=== PATIENT | female | born 1955 | race Caucasian/White ===

== ENCOUNTER 2020-06-07 09:52 | Inpatient (IN) ==
[2020-06-07] MEDS ORDERED: Isovue-370 500 ML BOTTLE IVP ONE (10:12)
[2020-06-07] MEDS ORDERED: 0.9 % Sodium Chloride 1,000 ML IVC ONE (10:12)
[2020-06-07] MEDS ORDERED: *HR* FentaNYL (PF) 100 MCG/2 ML VIAL IVP ONE (10:12)
[2020-06-07] MEDS ORDERED: Pantoprazole 40 MG VIAL IVP ONE (10:19)
[2020-06-07 10:36] LABS: Bacteria,Urine Few per hpf (None-Few); Bilirubin,Urine Negative (Negative); Blood,Urine Negative (Negative); Clarity,Urine Turbid (Clear); Color,Urine Yellow (Yellow); Glucose,Urine (UA) Normal (Normal); Hyaline Casts,Urine Many per lpf (None Seen); Ketones,Urine Negative (Negative); Leukocyte Esterase,Urine Negative (Negative); Mucus,Urine Few per lpf (None-Few); Nitrite,Urine Negative (Negative); PH,Urine 6.5 pH Units (5.0-8.0); Protein,Urine 50 mg/dL (Neg-Trace); Specific Gravity,Urine 1.021 (1.010-1.025); Squamous Epithelial Cell,Urine Moderate per hpf (None-Few); Urobilinogen,Urine Normal (Normal)
[2020-06-07 10:45] LABS: Basophils % 0.2 %; Eosinophils # 0.3 K/mcL (0.0-0.6); Eosinophils % 1.1 %; Hematocrit 40.3 % (35.3-44.9); Hemoglobin 12.9 g/dL (11.5-15.4); Immature Granulocytes % 0.8 % (0-4); Lymphocytes % 4.3 %; Mean Corpuscular Hemoglobin 27.5 pg (28.0-33.3); Mean Corpuscular Volume 85.9 fL (83.0-100.0); Mean Platelet Volume 10.9 fL (9.4-12.4); Monocytes # 0.8 K/mcL (0.0-1.3); Monocytes % 3.5 %; Neutrophils # 20.5 K/mcL (1.6-8.9); Nucleated Red Blood Cells 0.3 /100 WBC (0); Platelet Count 332 K/mcL (140-400); Red Blood Count 4.69 M/mcL (3.82-4.97); Segmented Neutrophils % 90.1 %; White Blood Count 22.8 K/mcL (4.3-11.1)
[2020-06-07 10:52] LABS: INR 1.3; Prothrombin Time 14.2 Seconds (9.4-12.1)
[2020-06-07 10:55] LABS: Activated Partial Thrombo Time 29.3 Seconds (26.0-36.0)
[2020-06-07 11:06] LABS: Albumin 4.3 g/dL (3.5-5.7); Albumin/Globulin Ratio 1.3 (1.1-2.2); Bilirubin,Direct 0.3 mg/dL (0.0-0.2); Bilirubin,Indirect 0.9 mg/dL (0.0-1.0); Bilirubin,Total 1.2 mg/dL (0.3-1.0); Calcium 9.4 mg/dL (8.6-10.3); Globulin 3.2 g/dL (2.4-3.5); Potassium 3.2 mEq/L (3.5-5.1); Total Protein 7.5 g/dL (6.4-8.9); Troponin I 0.04 ng/mL (< 0.04)
[2020-06-07] MEDS ORDERED: Piperacillin/Tazobactam 3.375 GM in 0.9 % Sodium Chloride Mini Bag 100 ML IVPB ONE (11:07)
[2020-06-07] MEDS ORDERED: Piperacillin/Tazobactam 3.375 GM in Water for inj. (sterile) 20 ML IVP ONE (11:40)
[2020-06-07] MEDS: Ondansetron 4 MG/2 ML VIAL IVP ONE ×2 (11:41→22:08)
[2020-06-07] MEDS ORDERED: 0.9 % Sodium Chloride 1,000 ML IV ONE (12:07)
[2020-06-07] MEDS ORDERED: Ondansetron 4 MG/2 ML VIAL IVP PRN ×2 (12:12→22:16)
[2020-06-07] MEDS ORDERED: Naloxone 0.4 MG/ML INJ IVP PRN ×2 (12:12→22:16)
[2020-06-07] MEDS ORDERED: 0.9 % Sodium Chloride 1,000 ML IVC SCH ×2 (12:15→22:16)
[2020-06-07] MEDS ORDERED: Dextrose Gel 15 GM/37.5 ML TUBE PO PRN ×4 (12:45→22:16)
[2020-06-07] MEDS ORDERED: D5% in Water 1,000 ML IVC PRN ×2 (12:45→22:16)
[2020-06-07] MEDS ORDERED: *HR* Dextrose 50 % in Water (Vial) 50 ML VIAL IVP PRN ×2 (12:45→22:16)
[2020-06-07] MEDS ORDERED: Morphine Sulfate 2 MG/ML SYRINGE IVP PRN (13:53)
[2020-06-07] MEDS ORDERED: Piperacillin/Tazobactam 3.375 GM in 0.9 % Sodium Chloride Mini Bag 100 ML IVPB SCH (16:00)
[2020-06-07] MEDS: Insulin LISPRO 300 UNITS/3 ML VIAL SQ SCH ×2 (16:51→18:56)
[2020-06-07] MEDS ORDERED: *HR* FentaNYL (PF) 100 MCG/2 ML VIAL ONE (17:54)
[2020-06-07] MEDS ORDERED: *HR* Propofol 200 MG/20 ML VIAL IVP ONE (17:54)
[2020-06-07] MEDS ORDERED: *HR* Midazolam HCl 2 MG/2 ML VIAL ONE (17:54)
[2020-06-07] MEDS ORDERED: *HR* Promethazine 25 MG/ML VIAL IVP PRN (17:55)
[2020-06-07] MEDS ORDERED: *HR* HYDROmorphone PF 0.5 MG/0.5 ML SYRINGE IVP PRN (17:55)
[2020-06-07] MEDS ORDERED: Ondansetron 4 MG/2 ML VIAL IVP ONE (17:55)
[2020-06-07] MEDS ORDERED: *HR* Meperidine 25 MG/ML SYRINGE IVP PRN (17:55)
[2020-06-07] MEDS ORDERED: Dexamethasone 4 MG/ML VIAL ONE (17:57)
[2020-06-07] MEDS ORDERED: Lidocaine HCL 4 ML Topical Solution (Laryng-O-Jet Kit Sterile Pak) TP ONE (17:57)
[2020-06-07] MEDS ORDERED: Bupivacaine/EPI 1:200k 0.25%PF 30 ML VIAL ONE (18:10)
[2020-06-07] MEDS ORDERED: *HR* HYDROMORPHONE 2 MG/ML VIAL ONE (19:17)
[2020-06-07] MEDS ORDERED: Acetaminophen IV 1,000 MG/100 ML INFUS..BTL ONE (19:31)
[2020-06-07] MEDS ORDERED: Ringers Solution, Lactated 1,000 ML ONE (21:21)
[2020-06-07] MEDS ORDERED: *HR* Heparin 5,000 UNIT/ML VIAL SQ SCH (22:00)
[2020-06-07] MEDS: Piperacillin/Tazobactam 3.375 GM in 0.9 % Sodium Chloride Mini Bag 100 ML IVPB SCH (23:50)
[2020-06-08] MEDS: Insulin LISPRO 300 UNITS/3 ML VIAL SQ SCH ×5 (02:27→23:15)
[2020-06-08] MEDS: Chloraseptic Spray 177 ML BOTTLE MM PRN ×3 (02:35→21:18)
[2020-06-08] MEDS: Morphine Sulfate 2 MG/ML SYRINGE IVP PRN ×4 (03:43→21:19)
[2020-06-08] MEDS: Piperacillin/Tazobactam 3.375 GM in 0.9 % Sodium Chloride Mini Bag 100 ML IVPB SCH ×4 (05:30→23:36)
[2020-06-08] MEDS: *HR* Heparin 5,000 UNIT/ML VIAL SQ SCH ×2 (05:30→17:57)
[2020-06-08 06:05] LABS: Basophils % 0.1 %; Eosinophils % 0.1 %; Hematocrit 34.8 % (35.3-44.9); Immature Granulocytes % 0.8 % (0-4); Lymphocytes # 0.7 K/mcL (0.6-4.6); Lymphocytes % 3.7 %; Mean Corpuscular HGB Conc 30.7 g/dL (31.6-35.5); Mean Corpuscular Hemoglobin 27.9 pg (28.0-33.3); Mean Corpuscular Volume 90.9 fL (83.0-100.0); Mean Platelet Volume 10.7 fL (9.4-12.4); Monocytes # 0.7 K/mcL (0.0-1.3); Monocytes % 3.5 %; Neutrophils # 17.9 K/mcL (1.6-8.9); Platelet Count 276 K/mcL (140-400); Red Blood Count 3.83 M/mcL (3.82-4.97); Red Cell Distribution Width 14.3 % (11.5-14.5); Segmented Neutrophils % 91.8 %; White Blood Count 19.4 K/mcL (4.3-11.1)
[2020-06-08 06:08] LABS: Hemoglobin 10.7 g/dL (11.5-15.4)
[2020-06-08 06:23] LABS: Alanine Aminotransferase 11 Units/L (7-52); Albumin 3.3 g/dL (3.5-5.7); Albumin/Globulin Ratio 1.3 (1.1-2.2); Alkaline Phosphatase 60 Units/L (34-104); Aspartate Amino Transferase 9 Units/L (13-39); BUN/Creatinine Ratio 15 (6-26); Bilirubin,Total 0.8 mg/dL (0.3-1.0); Blood Urea Nitrogen 14 mg/dL (8-23); Calcium 8.1 mg/dL (8.6-10.3); Carbon Dioxide 19 mEq/L (23-29); Chloride 110 mEq/L (98-107); Globulin 2.6 g/dL (2.4-3.5); Glucose 173 mg/dL (70-105); Magnesium 1.6 mg/dL (1.6-2.6); Osmolality,Calculated 289 (280-300); Phosphorous 2.7 mg/dL (2.7-4.5); Potassium 4.2 mEq/L (3.5-5.1); Sodium 137 mEq/L (136-145); Total Protein 5.9 g/dL (6.4-8.9); eGFR For African Americans > 60 (> 60); eGFR For Non-African Americans 59 (> 60)
[2020-06-08 08:37] LABS: Estimated Average Glucose 140 mg/dl
[2020-06-08] MEDS ORDERED: Orphenadrine 60 MG/2 ML VIAL IVP PRN (08:42)
[2020-06-08] MEDS: Acetaminophen IV 1,000 MG/100 ML INFUS..BTL IVPB SCH ×3 (09:48→21:19)
[2020-06-09] MEDS: Acetaminophen IV 1,000 MG/100 ML INFUS..BTL IVPB SCH ×4 (02:55→23:01)
[2020-06-09] MEDS: Piperacillin/Tazobactam 3.375 GM in 0.9 % Sodium Chloride Mini Bag 100 ML IVPB SCH ×3 (05:55→23:01)
[2020-06-09] MEDS: Insulin LISPRO 300 UNITS/3 ML VIAL SQ SCH ×3 (05:56→17:52)
[2020-06-09] MEDS: *HR* Heparin 5,000 UNIT/ML VIAL SQ SCH ×2 (05:56→17:47)
[2020-06-09] MEDS: Morphine Sulfate 2 MG/ML SYRINGE IVP PRN ×2 (09:36→17:47)
[2020-06-09 10:06] LABS: Basophils % 0.2 %; Eosinophils # 0.2 K/mcL (0.0-0.6); Hematocrit 35.4 % (35.3-44.9); Immature Granulocytes % 0.9 % (0-4); Lymphocytes # 1.4 K/mcL (0.6-4.6); Lymphocytes % 7.8 %; Mean Corpuscular HGB Conc 31.1 g/dL (31.6-35.5); Mean Corpuscular Hemoglobin 28.3 pg (28.0-33.3); Mean Platelet Volume 10.6 fL (9.4-12.4); Monocytes # 0.4 K/mcL (0.0-1.3); Monocytes % 2.3 %; Neutrophils # 15.3 K/mcL (1.6-8.9); Platelet Count 289 K/mcL (140-400); Red Blood Count 3.89 M/mcL (3.82-4.97); Red Cell Distribution Width 14.4 % (11.5-14.5); Segmented Neutrophils % 87.8 %; White Blood Count 17.5 K/mcL (4.3-11.1)
[2020-06-09 10:21] LABS: BUN/Creatinine Ratio 18 (6-26); Blood Urea Nitrogen 15 mg/dL (8-23); Calcium 8.2 mg/dL (8.6-10.3); Carbon Dioxide 19 mEq/L (23-29); Chloride 110 mEq/L (98-107); Glucose 107 mg/dL (70-105); Osmolality,Calculated 289 (280-300); Phosphorous 1.7 mg/dL (2.7-4.5); Potassium 3.9 mEq/L (3.5-5.1); Sodium 139 mEq/L (136-145); eGFR For African Americans > 60 (> 60); eGFR For Non-African Americans > 60 (> 60)
[2020-06-09 10:23] LABS: % Iron Saturation 6 % (15-50); Iron 14 mcg/dL (50-170); Transferrin 178 mg/dL (203-362)
[2020-06-09 10:41] LABS: Ferritin 242 ng/mL (10-120)
[2020-06-09 10:46] LABS: Folate 7.8 ng/mL (3.0-16.0)
[2020-06-09] MEDS: amLODIPine 5 MG TABLET PO SCH (15:26)
[2020-06-10 01:23] LABS: Basophils # 0.1 K/mcL (0.0-0.2); Basophils % 0.4 %; Eosinophils # 0.3 K/mcL (0.0-0.6); Eosinophils % 1.7 %; Hemoglobin 10.2 g/dL (11.5-15.4); Immature Granulocytes % 1.6 % (0-4); Lymphocytes # 1.6 K/mcL (0.6-4.6); Mean Corpuscular HGB Conc 30.9 g/dL (31.6-35.5); Mean Corpuscular Hemoglobin 27.6 pg (28.0-33.3); Mean Corpuscular Volume 89.4 fL (83.0-100.0); Mean Platelet Volume 10.8 fL (9.4-12.4); Monocytes # 0.5 K/mcL (0.0-1.3); Monocytes % 2.9 %; Neutrophils # 13.6 K/mcL (1.6-8.9); Platelet Count 379 K/mcL (140-400); Red Blood Count 3.69 M/mcL (3.82-4.97); Red Cell Distribution Width 14.5 % (11.5-14.5); Segmented Neutrophils % 83.4 %; White Blood Count 16.3 K/mcL (4.3-11.1)
[2020-06-10 01:42] LABS: BUN/Creatinine Ratio 17 (6-26); Blood Urea Nitrogen 11 mg/dL (8-23); Calcium 8.2 mg/dL (8.6-10.3); Carbon Dioxide 20 mEq/L (23-29); Chloride 105 mEq/L (98-107); Glucose 121 mg/dL (70-105); Magnesium 1.8 mg/dL (1.6-2.6); Osmolality,Calculated 281 (280-300); Phosphorous 2.4 mg/dL (2.7-4.5); Potassium 3.3 mEq/L (3.5-5.1); Sodium 135 mEq/L (136-145); eGFR For African Americans > 60 (> 60); eGFR For Non-African Americans > 60 (> 60)
[2020-06-10] MEDS: Insulin LISPRO 300 UNITS/3 ML VIAL SQ SCH ×5 (02:29→20:19)
[2020-06-10] MEDS: Piperacillin/Tazobactam 3.375 GM in 0.9 % Sodium Chloride Mini Bag 100 ML IVPB SCH ×3 (04:25→20:19)
[2020-06-10] MEDS: Acetaminophen IV 1,000 MG/100 ML INFUS..BTL IVPB SCH ×4 (04:25→20:20)
[2020-06-10] MEDS: *HR* Heparin 5,000 UNIT/ML VIAL SQ SCH ×2 (05:42→17:03)
[2020-06-10] MEDS: Morphine Sulfate 2 MG/ML SYRINGE IVP PRN ×2 (06:10→15:42)
[2020-06-10] MEDS ORDERED: Potassium Phosphate 44 MEQ in 0.9 % Sodium Chloride 250 ML IVPB ONE (07:39)
[2020-06-10] MEDS: amLODIPine 5 MG TABLET PO SCH (09:06)
[2020-06-10] MEDS ORDERED: *HR* Labetalol 20 MG/4 ML SYRINGE IVP ONE (14:49)
[2020-06-11] MEDS: Morphine Sulfate 2 MG/ML SYRINGE IVP PRN ×2 (03:46→11:58)
[2020-06-11] MEDS: Piperacillin/Tazobactam 3.375 GM in 0.9 % Sodium Chloride Mini Bag 100 ML IVPB SCH ×3 (03:49→20:43)
[2020-06-11] MEDS: Acetaminophen IV 1,000 MG/100 ML INFUS..BTL IVPB SCH ×4 (03:49→20:43)
[2020-06-11] MEDS: *HR* Heparin 5,000 UNIT/ML VIAL SQ SCH ×2 (05:40→17:21)
[2020-06-11 06:35] LABS: Hematocrit 34.5 % (35.3-44.9); Hemoglobin 10.8 g/dL (11.5-15.4); Mean Corpuscular HGB Conc 31.3 g/dL (31.6-35.5); Mean Corpuscular Hemoglobin 27.3 pg (28.0-33.3); Mean Corpuscular Volume 87.3 fL (83.0-100.0); Mean Platelet Volume 10.1 fL (9.4-12.4); Platelet Count 395 K/mcL (140-400); Red Blood Count 3.95 M/mcL (3.82-4.97); White Blood Count 15.7 K/mcL (4.3-11.1)
[2020-06-11 06:51] LABS: BUN/Creatinine Ratio 14 (6-26); Blood Urea Nitrogen 9 mg/dL (8-23); Calcium 8.8 mg/dL (8.6-10.3); Carbon Dioxide 23 mEq/L (23-29); Chloride 102 mEq/L (98-107); Glucose 123 mg/dL (70-105); Magnesium 1.9 mg/dL (1.6-2.6); Osmolality,Calculated 280 (280-300); Potassium 3.7 mEq/L (3.5-5.1); Sodium 135 mEq/L (136-145); eGFR For African Americans > 60 (> 60); eGFR For Non-African Americans > 60 (> 60)
[2020-06-11 07:07] LABS: Lymphocytes # 2.5 K/mcL (0.6-4.6); Monocytes # 0.9 K/mcL (0.0-1.3); Neutrophils # 11.9 K/mcL (1.6-8.9); Platelet Estimate Normal (Normal); Reactive Lymphocytes Present (Not Present)
[2020-06-11] MEDS: Insulin LISPRO 300 UNITS/3 ML VIAL SQ SCH ×4 (07:53→20:44)
[2020-06-11] MEDS ORDERED: Fluconazole 400 MG/200 ML 400 MG/200 ML BAG IVPB ONE (08:00)
[2020-06-11] MEDS: amLODIPine 5 MG TABLET PO SCH (08:01)
[2020-06-11] MEDS ORDERED: Sennosides/Docusate Sodium TABLET PO ONE (08:11)
[2020-06-11] MEDS ORDERED: Metoprolol XL (24 HR) Succ 50 MG TAB.ER.24H PO SCH (09:00)
[2020-06-12] MEDS: Piperacillin/Tazobactam 3.375 GM in 0.9 % Sodium Chloride Mini Bag 100 ML IVPB SCH ×3 (03:10→23:08)
[2020-06-12] MEDS: Acetaminophen IV 1,000 MG/100 ML INFUS..BTL IVPB SCH ×2 (03:10→09:03)
[2020-06-12] MEDS: *HR* Heparin 5,000 UNIT/ML VIAL SQ SCH ×2 (05:18→17:26)
[2020-06-12 05:27] LABS: Hematocrit 33.2 % (35.3-44.9); Hemoglobin 10.5 g/dL (11.5-15.4); Mean Corpuscular HGB Conc 31.6 g/dL (31.6-35.5); Mean Corpuscular Hemoglobin 28.2 pg (28.0-33.3); Mean Platelet Volume 10.1 fL (9.4-12.4); Platelet Count 363 K/mcL (140-400); Red Blood Count 3.73 M/mcL (3.82-4.97); Red Cell Distribution Width 14.4 % (11.5-14.5); White Blood Count 15.3 K/mcL (4.3-11.1)
[2020-06-12 05:40] LABS: BUN/Creatinine Ratio 17 (6-26); Blood Urea Nitrogen 14 mg/dL (8-23); Calcium 8.5 mg/dL (8.6-10.3); Carbon Dioxide 21 mEq/L (23-29); Chloride 105 mEq/L (98-107); Glucose 116 mg/dL (70-105); Osmolality,Calculated 281 (280-300); Potassium 3.7 mEq/L (3.5-5.1); Sodium 135 mEq/L (136-145); eGFR For African Americans > 60 (> 60); eGFR For Non-African Americans > 60 (> 60)
[2020-06-12 07:11] LABS: Lymphocytes # 1.2 K/mcL (0.6-4.6); Monocytes # 0.3 K/mcL (0.0-1.3); Neutrophils # 13.2 K/mcL (1.6-8.9); Platelet Estimate Normal (Normal)
[2020-06-12] MEDS: Insulin LISPRO 300 UNITS/3 ML VIAL SQ SCH ×4 (08:24→21:20)
[2020-06-12] MEDS: Metoprolol XL (24 HR) Succ 25 MG TAB.ER.24H PO SCH (09:05)
[2020-06-12] MEDS: Fluconazole 200 MG/100 ML 200 MG/100 ML BAG IVPB SCH (09:06)
[2020-06-12] MEDS ORDERED: *HR* OxyCODONE Immed Rel 5 MG TABLET PO PRN (09:59)
[2020-06-12] MEDS ORDERED: Ibuprofen 800 MG TABLET PO PRN (09:59)
[2020-06-12] MEDS ORDERED: Acetaminophen 325 MG TABLET PO PRN (09:59)
[2020-06-12 11:15] LABS: Bacteria,Urine Few per hpf (None-Few); Bilirubin,Urine Negative (Negative); Blood,Urine Trace (Negative); Clarity,Urine Clear (Clear); Color,Urine Yellow (Yellow); Glucose,Urine (UA) Normal (Normal); Ketones,Urine Negative (Negative); Leukocyte Esterase,Urine Negative (Negative); Mucus,Urine Few per lpf (None-Few); Nitrite,Urine Negative (Negative); Protein,Urine Trace mg/dL (Neg-Trace); RBC,Urine 0-3 per hpf (0-3); Specific Gravity,Urine 1.028 (1.010-1.025); Squamous Epithelial Cell,Urine Moderate per hpf (None-Few); Urobilinogen,Urine Normal (Normal); WBC,Urine 0-3 per hpf (0-3)
[2020-06-12] MEDS: Lactobacillus 1 EACH CAP.SPRINK PO SCH (23:07)
[2020-06-13 06:16] LABS: Eosinophils # 0.3 K/mcL (0.0-0.6); Hematocrit 33.7 % (35.3-44.9); Hemoglobin 10.5 g/dL (11.5-15.4); Mean Corpuscular HGB Conc 31.2 g/dL (31.6-35.5); Mean Corpuscular Hemoglobin 27.9 pg (28.0-33.3); Mean Corpuscular Volume 89.4 fL (83.0-100.0); Platelet Count 429 K/mcL (140-400); Red Blood Count 3.77 M/mcL (3.82-4.97); Red Cell Distribution Width 14.6 % (11.5-14.5); White Blood Count 15.8 K/mcL (4.3-11.1)
[2020-06-13 06:36] LABS: BUN/Creatinine Ratio 18 (6-26); Blood Urea Nitrogen 15 mg/dL (8-23); Calcium 8.3 mg/dL (8.6-10.3); Carbon Dioxide 21 mEq/L (23-29); Chloride 106 mEq/L (98-107); Glucose 123 mg/dL (70-105); Osmolality,Calculated 286 (280-300); Potassium 3.6 mEq/L (3.5-5.1); Sodium 137 mEq/L (136-145); eGFR For African Americans > 60 (> 60); eGFR For Non-African Americans > 60 (> 60)
[2020-06-13 06:41] LABS: Lymphocytes # 2.2 K/mcL (0.6-4.6); Neutrophils # 12.3 K/mcL (1.6-8.9); Reactive Lymphocytes Present (Not Present)
[2020-06-13] MEDS ORDERED: Piperacillin/Tazobactam 3.375 GM in 0.9 % Sodium Chloride Mini Bag 100 ML IVPB SCH (07:00)
[2020-06-13] MEDS: *HR* Heparin 5,000 UNIT/ML VIAL SQ SCH (08:51)
[2020-06-13] MEDS: Insulin LISPRO 300 UNITS/3 ML VIAL SQ SCH ×2 (08:55→12:04)
[2020-06-13] MEDS: Metoprolol XL (24 HR) Succ 25 MG TAB.ER.24H PO SCH (09:02)
[2020-06-13] MEDS: Lactobacillus 1 EACH CAP.SPRINK PO SCH (09:02)
[2020-06-13] MEDS: Fluconazole 200 MG/100 ML 200 MG/100 ML BAG IVPB SCH (09:02)
[2020-06-13 10:41] VITALS: BP 135/88
== END 2020-06-13 12:37 | disposition home or self-care (01) | DRG 853 ==
LOC: 3ANU 09:52 → EMEROOARM 09:52 → SUATTDRO 12:12 → 3ANU 13:34 → SUATTDRO 06-08 13:42
PROVIDERS: ADMIT Student in an Organized Health Care Education/Training Program; ATTEND Internal Medicine

== ENCOUNTER 2020-11-18 14:34 | Inpatient (IN) ==
[2020-11-18] MEDS ORDERED: Isovue-370 500 ML BOTTLE IVP ONE (14:51)
[2020-11-18 16:01] LABS: Bilirubin,Urine Negative (Negative); Blood,Urine Negative (Negative); Clarity,Urine Clear (Clear); Color,Urine Light-Yellow (Yellow); Glucose,Urine (UA) 100 mg/dL (Normal); Hyaline Casts,Urine Few per lpf (None Seen); Ketones,Urine Trace mg/dL (Negative); Leukocyte Esterase,Urine Negative (Negative); Nitrite,Urine Negative (Negative); Protein,Urine Negative (Neg-Trace); RBC,Urine 0-3 per hpf (0-3); Specific Gravity,Urine 1.021 (1.010-1.025); Urobilinogen,Urine Normal (Normal); WBC,Urine 0-3 per hpf (0-3)
[2020-11-18 16:10] LABS: Amphetamine Screen,Urine Negative ng/mL (Cutoff=1000); Barbiturate Screen,Urine Negative ng/mL (Cutoff=200); Benzodiazepines Screen,Urine Positive ng/mL (Cutoff=200); Cannabinoid Screen,Urine Negative ng/mL (Cutoff = 50); Cocaine Screen,Urine Negative ng/mL (Cutoff= 300); Opiate Screen,Urine Negative ng/mL (Cutoff=300); Phencyclidine Screen,Urine Negative ng/mL (Cutoff=25)
[2020-11-18] MEDS: 0.9 % Sodium Chloride 1,000 ML IVC SCH ×2 (16:26→18:29)
[2020-11-18 16:28] LABS: Basophils # 0.1 K/mcL (0.0-0.2); Basophils % 0.2 %; Hemoglobin 10.7 g/dL (11.5-15.4); Immature Granulocytes % 1.5 % (0-4); Lymphocytes # 1.6 K/mcL (0.6-4.6); Mean Corpuscular HGB Conc 31.5 g/dL (31.6-35.5); Mean Corpuscular Hemoglobin 26.9 pg (28.0-33.3); Mean Corpuscular Volume 85.4 fL (83.0-100.0); Mean Platelet Volume 10.6 fL (9.4-12.4); Monocytes # 1.2 K/mcL (0.0-1.3); Monocytes % 3.8 %; Neutrophils # 28.9 K/mcL (1.6-8.9); Platelet Count 404 K/mcL (140-400); Red Blood Count 3.98 M/mcL (3.82-4.97); Red Cell Distribution Width 16.4 % (11.5-14.5); Segmented Neutrophils % 89.5 %
[2020-11-18 16:31] LABS: White Blood Count 32.3 K/mcL (4.3-11.1)
[2020-11-18] MEDS ORDERED: Piperacillin/Tazobactam 3.375 GM in 0.9 % Sodium Chloride Mini Bag 100 ML IVPB ONE (16:38)
[2020-11-18 16:51] LABS: Alanine Aminotransferase 16 Units/L (7-52); Albumin/Globulin Ratio 1.4 (1.1-2.2); Alkaline Phosphatase 71 Units/L (34-104); Aspartate Amino Transferase 13 Units/L (13-39); BUN/Creatinine Ratio 29 (6-26); Bilirubin,Direct 0.1 mg/dL (0.0-0.2); Bilirubin,Indirect 0.4 mg/dL (0.0-1.0); Bilirubin,Total 0.5 mg/dL (0.3-1.0); Blood Urea Nitrogen 25 mg/dL (8-23); Calcium 8.8 mg/dL (8.6-10.3); Carbon Dioxide 22 mEq/L (23-29); Chloride 106 mEq/L (98-107); Creatine Kinase 89 Units/L (30-223); Ethanol < 10 mg/dL (Less than 10); Globulin 2.9 g/dL (2.4-3.5); Glucose 160 mg/dL (70-105); Osmolality,Calculated 298 (280-300); Sodium 140 mEq/L (136-145); Total Protein 6.9 g/dL (6.4-8.9); Troponin I 0.03 ng/mL (< 0.04); eGFR For African Americans > 60 (> 60); eGFR For Non-African Americans > 60 (> 60)
[2020-11-18 19:37] LABS: Adenovirus Not Detected (Not Detect); Bordetella Pertussis Not Detected (Not Detect); Chlamydophila pneumoniae Not Detected (Not Detect); Coronavirus 229E Not Detected (Not Detect); Coronavirus HKU1 Not Detected (Not Detect); Coronavirus NL63 Not Detected (Not Detect); Coronavirus OC43 Not Detected (Not Detect); Human Metapneumovirus Not Detected (Not Detect); Human Rhinovirus/Enterovirus Not Detected (Not Detect); Influenza A Subtype 2009 H1 Not Detected (Not Detect); Influenza B Not Detected (Not Detect); Mycoplasma pneumoniae Not Detected (Not Detect); Parainfluenza Virus 1 Not Detected (Not Detect); Parainfluenza Virus 2 Not Detected (Not Detect); Parainfluenza Virus 3 Not Detected (Not Detect); Parainfluenza Virus 4 Not Detected (Not Detect); Respiratory Syncytial Virus Not Detected (Not Detect); SARS-CoV-2 Not Detected (Not Detect)
[2020-11-18] MEDS ORDERED: Ondansetron 4 MG/2 ML VIAL IVP PRN (20:17)
[2020-11-18] MEDS ORDERED: Pantoprazole 40 MG VIAL IVP ONE (20:27)
[2020-11-18 20:34] LABS: C-Reactive Protein 92 mg/L (Less than 10)
[2020-11-18 22:03] LABS: Hemoglobin 9.4 g/dL (11.5-15.4); Mean Corpuscular Hemoglobin 26.6 pg (28.0-33.3); Red Blood Count 3.53 M/mcL (3.82-4.97); Red Cell Distribution Width 16.7 % (11.5-14.5)
[2020-11-18 22:05] LABS: Mean Corpuscular HGB Conc 31.3 g/dL (31.6-35.5); Mean Platelet Volume 10.4 fL (9.4-12.4); Platelet Count 349 K/mcL (140-400); White Blood Count 28.3 K/mcL (4.3-11.1)
[2020-11-18] MEDS: Piperacillin/Tazobactam 3.375 GM in 0.9 % Sodium Chloride Mini Bag 100 ML IVPB SCH (23:31)
[2020-11-19 04:44] LABS: Hematocrit 28.5 % (35.3-44.9); Hemoglobin 8.8 g/dL (11.5-15.4); Mean Corpuscular HGB Conc 30.9 g/dL (31.6-35.5); Mean Corpuscular Hemoglobin 27.1 pg (28.0-33.3); Mean Corpuscular Volume 87.7 fL (83.0-100.0); Mean Platelet Volume 11.1 fL (9.4-12.4); Platelet Count 302 K/mcL (140-400); Red Blood Count 3.25 M/mcL (3.82-4.97); Red Cell Distribution Width 17.1 % (11.5-14.5); White Blood Count 21.7 K/mcL (4.3-11.1)
[2020-11-19 05:00] LABS: BUN/Creatinine Ratio 38 (6-26); Blood Urea Nitrogen 32 mg/dL (8-23); Calcium 8.5 mg/dL (8.6-10.3); Carbon Dioxide 21 mEq/L (23-29); Chloride 110 mEq/L (98-107); Glucose 145 mg/dL (70-105); Osmolality,Calculated 301 (280-300); Potassium 3.9 mEq/L (3.5-5.1); Sodium 141 mEq/L (136-145); eGFR For African Americans > 60 (> 60); eGFR For Non-African Americans > 60 (> 60)
[2020-11-19] MEDS: Pantoprazole 40 MG VIAL IVP SCH ×2 (05:17→16:23)
[2020-11-19] MEDS ORDERED: Sucralfate 1 GM TABLET PO SCH (07:30)
[2020-11-19] MEDS: Piperacillin/Tazobactam 3.375 GM in 0.9 % Sodium Chloride Mini Bag 100 ML IVPB SCH ×3 (09:50→23:25)
[2020-11-19] MEDS ORDERED: Dextrose Gel 15 GM/37.5 ML TUBE PO PRN ×2 (10:19)
[2020-11-19] MEDS ORDERED: *HR* Dextrose 50 % in Water (Vial) 50 ML VIAL IVP PRN (10:19)
[2020-11-19] MEDS ORDERED: D5% in Water 1,000 ML IVC PRN (10:19)
[2020-11-19] MEDS: 0.9 % Sodium Chloride 1,000 ML IVC SCH ×2 (13:40→23:25)
[2020-11-19] MEDS ORDERED: *HR* Propofol 200 MG/20 ML VIAL IVP ONE (14:50)
[2020-11-19] MEDS ORDERED: Lidocaine -MPF 2% 2 ML VIAL ONE (14:50)
[2020-11-19] MEDS: Metoprolol XL (24 HR) Succ 25 MG TAB.ER.24H PO SCH (15:29)
[2020-11-20 01:35] LABS: Hematocrit 24.4 % (35.3-44.9); Hemoglobin 7.5 g/dL (11.5-15.4); Mean Corpuscular HGB Conc 30.7 g/dL (31.6-35.5); Mean Corpuscular Volume 87.8 fL (83.0-100.0); Mean Platelet Volume 10.5 fL (9.4-12.4); Platelet Count 283 K/mcL (140-400); Red Blood Count 2.78 M/mcL (3.82-4.97); Red Cell Distribution Width 17.3 % (11.5-14.5); White Blood Count 13.7 K/mcL (4.3-11.1)
[2020-11-20 02:00] LABS: Alanine Aminotransferase 11 Units/L (7-52); Albumin 3.3 g/dL (3.5-5.7); Albumin/Globulin Ratio 1.4 (1.1-2.2); Alkaline Phosphatase 53 Units/L (34-104); Aspartate Amino Transferase 9 Units/L (13-39); BUN/Creatinine Ratio 22 (6-26); Bilirubin,Total 0.3 mg/dL (0.3-1.0); Blood Urea Nitrogen 18 mg/dL (8-23); Carbon Dioxide 19 mEq/L (23-29); Chloride 111 mEq/L (98-107); Globulin 2.4 g/dL (2.4-3.5); Glucose 128 mg/dL (70-105); Osmolality,Calculated 294 (280-300); Potassium 3.9 mEq/L (3.5-5.1); Sodium 140 mEq/L (136-145); Total Protein 5.7 g/dL (6.4-8.9); eGFR For African Americans > 60 (> 60); eGFR For Non-African Americans > 60 (> 60)
[2020-11-20] MEDS: Pantoprazole 40 MG VIAL IVP SCH ×2 (05:43→17:25)
[2020-11-20] MEDS: Piperacillin/Tazobactam 3.375 GM in 0.9 % Sodium Chloride Mini Bag 100 ML IVPB SCH ×3 (08:47→23:28)
[2020-11-20] MEDS: Metoprolol XL (24 HR) Succ 25 MG TAB.ER.24H PO SCH (08:47)
[2020-11-20] MEDS: Insulin LISPRO 300 UNITS/3 ML VIAL SUBQ SCH ×2 (11:38→17:28)
[2020-11-20 16:21] LABS: Hematocrit 25.9 % (35.3-44.9); Hemoglobin 8.1 g/dL (11.5-15.4)
[2020-11-20] MEDS: Sucralfate 1 GM TABLET PO SCH (17:25)
[2020-11-21] MEDS: 0.9 % Sodium Chloride 1,000 ML IVC SCH ×6 (05:01→05:10)
[2020-11-21] MEDS: Pantoprazole 40 MG VIAL IVP SCH (05:33)
[2020-11-21 05:35] LABS: Hematocrit 26.6 % (35.3-44.9); Hemoglobin 8.3 g/dL (11.5-15.4); Mean Corpuscular HGB Conc 31.2 g/dL (31.6-35.5); Mean Corpuscular Hemoglobin 26.9 pg (28.0-33.3); Mean Corpuscular Volume 86.1 fL (83.0-100.0); Mean Platelet Volume 10.3 fL (9.4-12.4); Platelet Count 310 K/mcL (140-400); Red Blood Count 3.09 M/mcL (3.82-4.97); Red Cell Distribution Width 16.7 % (11.5-14.5); White Blood Count 10.4 K/mcL (4.3-11.1)
[2020-11-21 05:56] LABS: BUN/Creatinine Ratio 12 (6-26); Blood Urea Nitrogen 10 mg/dL (8-23); Calcium 8.8 mg/dL (8.6-10.3); Carbon Dioxide 23 mEq/L (23-29); Chloride 106 mEq/L (98-107); Glucose 134 mg/dL (70-105); Magnesium 2.2 mg/dL (1.6-2.6); Osmolality,Calculated 287 (280-300); Potassium 3.5 mEq/L (3.5-5.1); Sodium 138 mEq/L (136-145); eGFR For African Americans > 60 (> 60); eGFR For Non-African Americans > 60 (> 60)
[2020-11-21] MEDS ORDERED: amLODIPine 5 MG TABLET PO SCH (09:00)
[2020-11-21] MEDS: Metoprolol XL (24 HR) Succ 25 MG TAB.ER.24H PO SCH (09:29)
[2020-11-21] MEDS: Sucralfate 1 GM TABLET PO SCH ×2 (09:29→11:41)
[2020-11-21] MEDS: Piperacillin/Tazobactam 3.375 GM in 0.9 % Sodium Chloride Mini Bag 100 ML IVPB SCH (09:30)
[2020-11-21] MEDS: Insulin LISPRO 300 UNITS/3 ML VIAL SUBQ SCH ×2 (09:32→11:40)
[2020-11-21 11:09] VITALS: BP 151/94
== END 2020-11-21 15:37 | disposition home or self-care (01) | DRG 871 ==
LOC: 2ANU 14:34 → EMEROOARM 14:34 → SUATTDRO 20:15 → 2ANU 21:19 → SUATTDRO 11-20 18:07
PROVIDERS: ADMIT Family Medicine; ATTEND Internal Medicine

== ENCOUNTER 2022-08-10 15:33 | Inpatient (IN) ==
[2022-08-10] MEDS ORDERED: Iopamidol - 370 500 ML MLS IVP ONE (16:53)
[2022-08-10 18:13] LABS: Hematocrit 39.9 % (35.3-44.9); Hemoglobin 12.9 g/dL (11.5-15.4); Mean Corpuscular HGB Conc 32.3 g/dL (31.6-35.5); Mean Corpuscular Hemoglobin 27.2 pg (28.0-33.3); Mean Platelet Volume 10.7 fL (9.4-12.4); Platelet Count 282 K/mcL (140-400); Red Blood Count 4.75 M/mcL (3.82-4.97); Red Cell Distribution Width 13.8 % (11.5-14.5); White Blood Count 12.2 K/mcL (4.3-11.1)
[2022-08-10 18:28] LABS: INR 1.1; Prothrombin Time 12.2 Seconds (9.4-12.1)
[2022-08-10 18:31] LABS: Activated Partial Thrombo Time 24.8 Seconds (26.0-36.0)
[2022-08-10 18:36] LABS: BUN/Creatinine Ratio 10 (6-26); Blood Urea Nitrogen 12 mg/dL (8-23); Calcium 9.2 mg/dL (8.6-10.3); Carbon Dioxide 24 mEq/L (23-29); Chloride 102 mEq/L (98-107); Creatine Kinase 67 Units/L (30-223); Glucose 124 mg/dL (70-105); Osmolality,Calculated 281 (280-300); Potassium 3.7 mEq/L (3.5-5.1); Sodium 135 mEq/L (136-145)
[2022-08-10 18:37] LABS: Troponin I < 0.03 ng/mL (< 0.04)
[2022-08-10 19:57] LABS: Bilirubin,Urine Negative (Negative); Blood,Urine Negative (Negative); Clarity,Urine Clear (Clear); Color,Urine Light-Yellow (Yellow); Glucose,Urine (UA) Normal (Normal); Ketones,Urine Negative (Negative); Leukocyte Esterase,Urine Negative (Negative); Nitrite,Urine Negative (Negative); Protein,Urine Trace mg/dL (Neg-Trace); Specific Gravity,Urine 1.018 (1.010-1.025)
[2022-08-10 20:06] LABS: Amphetamine Screen,Urine Negative ng/mL (Cutoff=1000); Barbiturate Screen,Urine Negative ng/mL (Cutoff=200); Benzodiazepines Screen,Urine Negative ng/mL (Cutoff=200); Cannabinoid Screen,Urine Negative ng/mL (Cutoff = 50); Cocaine Screen,Urine Negative ng/mL (Cutoff= 300); Opiate Screen,Urine Negative ng/mL (Cutoff=300); Phencyclidine Screen,Urine Negative ng/mL (Cutoff=25)
[2022-08-10] MEDS ORDERED: Aspirin 81 MG TAB.CHEW PO STA (21:16)
[2022-08-10] MEDS ORDERED: Melatonin 3 MG TABLET PO PRN (21:34)
[2022-08-10] MEDS ORDERED: Naloxone 0.4 MG/ML INJ IVP PRN (21:34)
[2022-08-10] MEDS: niCARdipine 20 MG/200 ML MLS IVC SCH (21:36)
[2022-08-11] MEDS ORDERED: Ondansetron 4 MG/2 ML VIAL ONE (00:32)
[2022-08-11] MEDS ORDERED: Ondansetron 4 MG/2 ML VIAL IVP ONE (00:43)
[2022-08-11] MEDS ORDERED: 0.9 % Sodium Chloride 250 ML IVC ONE (01:06)
[2022-08-11] MEDS ORDERED: Acetaminophen IV 500 MG/50 ML BAG IVPB ONE (01:08)
[2022-08-11] MEDS: Artificial Tears SOLN 15 ML BOTTLE BOTH EYES SCH ×2 (01:43→20:04)
[2022-08-11 02:10] LABS: Hematocrit 42.3 % (35.3-44.9); Hemoglobin 13.8 g/dL (11.5-15.4); Mean Corpuscular HGB Conc 32.6 g/dL (31.6-35.5); Mean Corpuscular Hemoglobin 27.4 pg (28.0-33.3); Mean Corpuscular Volume 84.1 fL (83.0-100.0); Mean Platelet Volume 10.4 fL (9.4-12.4); Platelet Count 339 K/mcL (140-400); Red Blood Count 5.03 M/mcL (3.82-4.97); Red Cell Distribution Width 13.9 % (11.5-14.5); White Blood Count 14.2 K/mcL (4.3-11.1)
[2022-08-11 02:25] LABS: Estimated Average Glucose 137 mg/dl; Hemoglobin A1C 6.4 %
[2022-08-11 02:29] LABS: Chol/HDL Ratio 7.1 (0-4.9)
[2022-08-11 02:30] LABS: Calcium 9.3 mg/dL (8.6-10.3); Potassium 3.4 mEq/L (3.5-5.1)
[2022-08-11] MEDS: niCARdipine 20 MG/200 ML MLS IVC SCH ×2 (03:28→06:10)
[2022-08-11] MEDS: Aspirin 81 MG TAB.CHEW PO SCH (07:58)
[2022-08-11] MEDS: Metoprolol XL (24 HR) Succ 25 MG TAB.ER.24H PO SCH (10:42)
[2022-08-11] MEDS: Ondansetron ODT 4 MG TAB.RAPDIS SL PRN (12:22)
[2022-08-12 03:15] LABS: Hematocrit 38.2 % (35.3-44.9); Mean Corpuscular HGB Conc 31.9 g/dL (31.6-35.5); Mean Corpuscular Hemoglobin 27.1 pg (28.0-33.3); Mean Corpuscular Volume 84.9 fL (83.0-100.0); Mean Platelet Volume 10.3 fL (9.4-12.4); Platelet Count 382 K/mcL (140-400); Red Cell Distribution Width 14.1 % (11.5-14.5); White Blood Count 11.9 K/mcL (4.3-11.1)
[2022-08-12 03:30] LABS: Hemoglobin 12.2 g/dL (11.5-15.4)
[2022-08-12 03:48] LABS: Calcium 9.1 mg/dL (8.6-10.3); Potassium 3.5 mEq/L (3.5-5.1)
[2022-08-12] MEDS: Metoprolol XL (24 HR) Succ 25 MG TAB.ER.24H PO SCH (08:20)
[2022-08-12] MEDS: Aspirin 81 MG TAB.CHEW PO SCH (08:20)
[2022-08-12] MEDS ORDERED: Lidocaine Viscous Oral Soln 15 ML SOLUTION MM PRN (10:54)
[2022-08-12] MEDS ORDERED: *HR* FentaNYL (PF) 100 MCG/2 ML VIAL IVP PRN (10:54)
[2022-08-12] MEDS ORDERED: *HR* Midazolam HCl 5 MG/5 ML VIAL IVP PRN (10:55)
[2022-08-12] MEDS ORDERED: 0.9 % Sodium Chloride 500 ML IVC ONE (10:55)
[2022-08-12] MEDS ORDERED: *HR* Labetalol 20 MG/4 ML SYRINGE IVP ONE (19:55)
[2022-08-12] MEDS: Artificial Tears SOLN 15 ML BOTTLE BOTH EYES SCH (20:07)
[2022-08-13] MEDS: Aspirin 81 MG TAB.CHEW PO SCH (08:38)
[2022-08-13] MEDS: Metoprolol XL (24 HR) Succ 25 MG TAB.ER.24H PO SCH (08:39)
[2022-08-13] MEDS: Acetaminophen 325 MG TABLET PO PRN (13:00)
[2022-08-13] MEDS: amLODIPine 5 MG TABLET PO SCH (14:05)
[2022-08-13] MEDS: Artificial Tears SOLN 15 ML BOTTLE BOTH EYES SCH (19:42)
[2022-08-14] MEDS: Acetaminophen 325 MG TABLET PO PRN (07:59)
[2022-08-14] MEDS: Metoprolol XL (24 HR) Succ 25 MG TAB.ER.24H PO SCH (07:59)
[2022-08-14] MEDS: Aspirin 81 MG TAB.CHEW PO SCH (07:59)
[2022-08-14] MEDS: amLODIPine 5 MG TABLET PO SCH (07:59)
[2022-08-14 10:33] LABS: Influenza A PCR Negative (Negative); Influenza B PCR Negative (Negative); Resp. Syncytial Virus PCR Negative (Negative)
[2022-08-14 10:34] LABS: SARS-CoV-2 by PCR (In House) Negative (Negative)
[2022-08-14] MEDS: Ondansetron ODT 4 MG TAB.RAPDIS SL PRN (10:48)
[2022-08-14] MEDS ORDERED: Prochlorperazine 10 MG/2 ML VIAL IVP PRN (12:28)
[2022-08-14 13:10] LABS: Albumin 4.3 g/dL (3.5-5.7); Albumin/Globulin Ratio 1.3 (1.1-2.2); Bilirubin,Total 0.5 mg/dL (0.3-1.0); Calcium 9.7 mg/dL (8.6-10.3); Globulin 3.3 g/dL (2.4-3.5); Magnesium 2.2 mg/dL (1.6-2.6); Potassium 3.5 mEq/L (3.5-5.1); Total Protein 7.6 g/dL (6.4-8.9)
[2022-08-14 14:35] LABS: Basophils % 0.3 %; Eosinophils % 0.2 %; Hematocrit 44.2 % (35.3-44.9); Immature Granulocytes % 0.6 % (0-4); Lymphocytes # 1.9 K/mcL (0.6-4.6); Lymphocytes % 13.3 %; Mean Corpuscular HGB Conc 32.4 g/dL (31.6-35.5); Mean Corpuscular Volume 83.6 fL (83.0-100.0); Mean Platelet Volume 10.5 fL (9.4-12.4); Monocytes # 0.6 K/mcL (0.0-1.3); Monocytes % 3.9 %; Neutrophils # 11.8 K/mcL (1.6-8.9); Platelet Count 422 K/mcL (140-400); Red Blood Count 5.29 M/mcL (3.82-4.97); Red Cell Distribution Width 14.3 % (11.5-14.5); Segmented Neutrophils % 81.7 %; White Blood Count 14.5 K/mcL (4.3-11.1)
[2022-08-14 14:37] LABS: Hemoglobin 14.3 g/dL (11.5-15.4)
[2022-08-14] MEDS: carvediloL 6.25 MG TABLET PO SCH (17:15)
[2022-08-14] MEDS: Artificial Tears SOLN 15 ML BOTTLE BOTH EYES SCH (20:11)
[2022-08-15] MEDS: carvediloL 6.25 MG TABLET PO SCH (09:02)
[2022-08-15] MEDS: amLODIPine 5 MG TABLET PO SCH (09:03)
[2022-08-15] MEDS: Aspirin 81 MG TAB.CHEW PO SCH (09:03)
[2022-08-15 09:42] LABS: Basophils # 0.1 K/mcL (0.0-0.2); Basophils % 0.4 %; Eosinophils # 0.1 K/mcL (0.0-0.6); Eosinophils % 0.9 %; Hematocrit 43.1 % (35.3-44.9); Hemoglobin 14.1 g/dL (11.5-15.4); Immature Granulocytes % 0.5 % (0-4); Lymphocytes % 21.2 %; Mean Corpuscular HGB Conc 32.7 g/dL (31.6-35.5); Mean Corpuscular Hemoglobin 27.5 pg (28.0-33.3); Mean Corpuscular Volume 84.2 fL (83.0-100.0); Mean Platelet Volume 10.5 fL (9.4-12.4); Monocytes # 0.7 K/mcL (0.0-1.3); Monocytes % 4.6 %; Neutrophils # 10.3 K/mcL (1.6-8.9); Platelet Count 407 K/mcL (140-400); Red Blood Count 5.12 M/mcL (3.82-4.97); Red Cell Distribution Width 14.3 % (11.5-14.5); Segmented Neutrophils % 72.4 %; White Blood Count 14.3 K/mcL (4.3-11.1)
[2022-08-15 09:58] LABS: Calcium 9.6 mg/dL (8.6-10.3)
[2022-08-15 11:24] VITALS: PULSE 73; O2SAT 19
[2022-08-15] MEDS ORDERED: carvediloL 6.25 MG TABLET PO SCH ×2 (11:30→17:00)
[2022-08-15 15:07] VITALS: BP 172/100; TEMP 97.3
[2022-08-15] MEDS ORDERED: amLODIPine 5 MG TABLET PO ONE (17:30)
== END 2022-08-15 17:30 | DRG 64 ==
LOC: 3BNU 15:33 → EMEROOARM 15:33 → SUATTDRO 21:22 → ICNU 22:09 → 2NENU 22:41 → SUATTDRO 22:42 → 2NENU 23:29
PROVIDERS: ADMIT Internal Medicine; ATTEND Internal Medicine

== ENCOUNTER 2022-08-18 11:59 | Inpatient (IN) ==
[2022-08-18] MEDS ORDERED: Naloxone 0.4 MG/ML INJ IVP PRN (16:56)
[2022-08-18] MEDS: 0.9 % Sodium Chloride 1,000 ML IVC SCH (18:18)
[2022-08-19 03:10] LABS: INR 1.2; Prothrombin Time 13.3 Seconds (9.4-12.1)
[2022-08-19 03:22] LABS: Estimated Average Glucose 131 mg/dl; Hemoglobin A1C 6.2 %
[2022-08-19 03:27] LABS: Alanine Aminotransferase 10 Units/L (7-52); Albumin 4.1 g/dL (3.5-5.7); Albumin/Globulin Ratio 1.2 (1.1-2.2); Alkaline Phosphatase 86 Units/L (34-104); Aspartate Amino Transferase 15 Units/L (13-39); BUN/Creatinine Ratio 11 (6-26); Bilirubin,Total 0.8 mg/dL (0.3-1.0); Blood Urea Nitrogen 9 mg/dL (8-23); Calcium 9.5 mg/dL (8.6-10.3); Carbon Dioxide 23 mEq/L (23-29); Chloride 102 mEq/L (98-107); Chol/HDL Ratio 3.8 (0-4.9); Cholesterol 170 mg/dL (< 200); Globulin 3.3 g/dL (2.4-3.5); Glucose 106 mg/dL (70-105); HDL Cholesterol 45 mg/dL (40-59); LDL Cholesterol,Calculated 89 mg/dL (< 100); LDL Cholesterol,Direct 108 mg/dL (75-193); Osmolality,Calculated 281 (280-300); Potassium 3.4 mEq/L (3.5-5.1); Sodium 136 mEq/L (136-145); Total Protein 7.4 g/dL (6.4-8.9); Triglycerides 182 mg/dL (< 150); Troponin I < 0.03 ng/mL (< 0.04)
[2022-08-19] MEDS: 0.9 % Sodium Chloride 1,000 ML IVC SCH (06:10)
[2022-08-19] MEDS: Aspirin Enteric Coated 81 MG Tablet PO SCH (09:24)
[2022-08-19] MEDS ORDERED: Iopamidol - 370 500 ML MLS IVP ONE (11:33)
[2022-08-19] MEDS ORDERED: E-Z-PAQUE (BARIUM SULF) SUSP 1 BOTTLE PO ONE (12:29)
[2022-08-19] MEDS ORDERED: E-Z-HD (BARIUM SULF) SUSPENSION PO ONE (12:29)
[2022-08-20] MEDS: Aspirin Enteric Coated 81 MG Tablet PO SCH (07:41)
[2022-08-20] MEDS ORDERED: D5% in Water 1,000 ML IVC PRN (14:33)
[2022-08-20] MEDS ORDERED: Dextrose Gel 15 GM/37.5 ML TUBE PO PRN ×2 (14:33)
[2022-08-20] MEDS ORDERED: *HR* Dextrose 50 % in Water (Syg) 50 ML SYRINGE IVP PRN (14:33)
[2022-08-20] MEDS ORDERED: Acetaminophen 650 MG RECTAL SUPP RC PRN (15:14)
[2022-08-20] MEDS: 0.9 % Sodium Chloride 1,000 ML IVC SCH (17:40)
[2022-08-20] MEDS ORDERED: Iopamidol - 370 500 ML MLS IVP ONE (18:18)
[2022-08-20] MEDS: Piperacillin/Tazobactam 3.375 GM in 0.9 % Sodium Chloride Mini Bag 100 ML IVPB SCH (18:20)
[2022-08-21 00:29] LABS: Bilirubin,Urine Negative (Negative); Blood,Urine Small (Negative); Clarity,Urine Clear (Clear); Color,Urine Yellow (Yellow); Glucose,Urine (UA) Normal (Normal); Ketones,Urine 60 mg/dL (Negative); Leukocyte Esterase,Urine Negative (Negative); Nitrite,Urine Negative (Negative); PH,Urine 6.5 pH Units (5.0-8.0); Protein,Urine 50 mg/dL (Neg-Trace); Specific Gravity,Urine > 1.030 (1.010-1.025); WBC,Urine 0-3 per hpf (0-3)
[2022-08-21] MEDS: Piperacillin/Tazobactam 3.375 GM in 0.9 % Sodium Chloride Mini Bag 100 ML IVPB SCH ×2 (00:56→08:11)
[2022-08-21] MEDS: Aspirin Enteric Coated 81 MG Tablet PO SCH (08:06)
[2022-08-21] MEDS: 0.9 % Sodium Chloride 1,000 ML IVC SCH (08:10)
[2022-08-21 09:32] LABS: Mean Corpuscular HGB Conc 32.7 g/dL (31.6-35.5); Mean Corpuscular Hemoglobin 27.6 pg (28.0-33.3); Mean Corpuscular Volume 84.3 fL (83.0-100.0); Mean Platelet Volume 10.8 fL (9.4-12.4); Platelet Count 286 K/mcL (140-400); Red Blood Count 4.39 M/mcL (3.82-4.97); Red Cell Distribution Width 14.3 % (11.5-14.5)
[2022-08-21 09:36] LABS: Hemoglobin 12.1 g/dL (11.5-15.4); White Blood Count 23.2 K/mcL (4.3-11.1)
[2022-08-21 09:45] LABS: Calcium 9.1 mg/dL (8.6-10.3); Potassium 3.3 mEq/L (3.5-5.1)
[2022-08-21 10:34] LABS: Anisocytosis 1+ (Not Present); Lymphocytes # 0.9 K/mcL (0.6-4.6); Monocytes # 0.9 K/mcL (0.0-1.3); Neutrophils # 21.3 K/mcL (1.6-8.9); Platelet Estimate Normal (Normal)
[2022-08-22] MEDS: *HR* HYDROmorphone (PF) 1 MG/ML SYRINGE IVP PRN (04:14)
[2022-08-22] MEDS ORDERED: *HR* LORazepam 0.5 MG TABLET PO PRN (10:58)
[2022-08-22] MEDS ORDERED: Haloperidol Lactate 5 MG/ML VIAL IVP PRN (10:58)
[2022-08-22] MEDS ORDERED: Scopolamine Patch 1.5 MG PATCH.TD72 TD SCH (11:00)
[2022-08-22] MEDS ORDERED: Bisacodyl 10 MG RECTAL SUPPOSITORY RC PRN (11:04)
[2022-08-22] MEDS: *HR* HYDROmorphone (PF) 1 MG/ML SYRINGE IVP SCH ×2 (12:01→18:07)
[2022-08-23] MEDS: *HR* HYDROmorphone (PF) 1 MG/ML SYRINGE IVP SCH ×4 (00:12→18:03)
[2022-08-23] MEDS: *HR* HYDROmorphone (PF) 1 MG/ML SYRINGE IVP PRN (15:24)
[2022-08-24] MEDS: *HR* HYDROmorphone (PF) 1 MG/ML SYRINGE IVP SCH ×2 (00:29→06:22)
[2022-08-24] MEDS: *HR* HYDROmorphone (PF) 1 MG/ML SYRINGE IVP PRN ×2 (03:21→08:41)
[2022-08-24 03:32] VITALS: BP 155/95; PULSE 117; TEMP 100.9; O2SAT 89
== END 2022-08-24 09:19 | disposition expired | DRG 64 ==
LOC: 3BNU → SUATTDRO 17:46 → 3BNU 08-20 20:53 → 2ANU 08-21 17:54
PROVIDERS: ADMIT Internal Medicine; ATTEND Registered Nurse